=== PATIENT | male | born 1980 | race African-American/Black ===

== ENCOUNTER 2017-12-07 15:04 | Emergency (ER) | payer SELFPAY ==
[~2017-12-07] VITALS: Ht 175.3 cm; Wt 79.4 kg
[2017-12-07 15:09] VITALS: Ht 175.3 cm; Wt 79.4 kg
[2017-12-07] MEDS ORDERED: VOLTAREN75 MG PO (16:29)
[2017-12-07] MEDS ORDERED: BACLOFEN20 M1 PO (16:29)
[2017-12-07 16:55] VITALS: BP 141/80
== END 2017-12-07 16:55 | disposition home or self-care (01) ==
LOC: D.ER 15:04
DX: S39.012A Strain of muscle, fascia and tendon of lower back, initial encounter (principal); X50.0XXA Overexertion from strenuous movement or load, initial encounter; Y93.89 Activity, other specified; Y92.019 Unspecified place in single-family (private) house as the place of occurrence of the external cause

== ENCOUNTER 2018-03-22 11:53 | Emergency (ER) | payer SELFPAY ==
[~2018-03-22 11:53] MED LIST: BACLOFEN20 M1 PO; VOLTAREN75 MG PO
== END 2018-03-22 12:08 | disposition left against medical advice (07) ==
LOC: D.ER 11:53
DX: M54.9 Dorsalgia, unspecified (principal)